=== PATIENT | male | born 1985 | race Hispanic/Latino ===

== ENCOUNTER 2018-02-20 15:50 | Emergency (ER) | payer OTHER ==
[~2018-02-20] VITALS: Ht 182.9 cm; Wt 92.0 kg
[2018-02-20 16:47] LABS: APPEARANCE CLOUDY ((CLEAR)); BILIRUBIN NEGATIVE; BLOOD MODERATE; COLOR YELLOW ((YELLOW)); GLUCOSE (STRIP) NEGATIVE; KETONES NEGATIVE; LEUKOCYTES LARGE; NITRITE POSITIVE; PROTEIN (STRIP) 100; SPECIFIC GRAVITY 1.017 (1.000-1.030); UROBILINOGEN 0.2 MG/DL (0.2-1.0)
[2018-02-20 17:10] LABS: HEMATOCRIT 43.1 % (38.0-50.0); HEMOGLOBIN 15.1 G/DL (12.5-16.6); MCH 30.8 PG (29.0-34.0); PLATELET COUNT 203 K/uL (156-360); RBC DIS.WIDTH-CV 12.7 % (11.8-14.6); RBC DIS.WIDTH-SD 41.1 % (39-53)
[2018-02-20 17:22] LABS: ALBUMIN 4.7 g/dL (3.2-4.8)
[2018-02-20 17:23] LABS: CHLORIDE 103 mEq/L (99-109); POTASSIUM 3.4 mEq/L (3.7-5.4); SODIUM 139 mEq/L (136-147)
[2018-02-20 17:25] LABS: GLUCOSE 83 mg/dL (70-99)
[2018-02-20 17:27] LABS: TOTAL BILIRUBIN 1.7 mg/dL (0.0-1.0)
[2018-02-20 17:28] LABS: ALKALINE PHOSPHATASE 81 IU/L (3-129)
[2018-02-20 17:29] LABS: CREATININE 1.1 mg/dL (0.6-1.3); GFR ESTIMATE (CALCULATED) > 59 mL/min/ (58.99-99999)
[2018-02-20 17:30] LABS: AST (GOT) 42 IU/L (2-34); UREA NITROGEN (BUN) 7 mg/dL (9-23)
[2018-02-20 17:31] LABS: UCUL ADDED? YES; WHITE BLOOD CELLS TNTC /HPF (0-5)
[2018-02-20 17:32] LABS: ALT (GPT) 79 IU/L (3-49)
[2018-02-20 17:55] LABS: SOURCE URINE
[2018-02-20 18:07] LABS: DIRECT BILIRUBIN 0.5 mg/dL (0.0-0.3)
[2018-02-20] MEDS ORDERED: NAPROSYN500 MG PO (19:01)
[2018-02-20] MEDS ORDERED: PYRIDIUM200 MG PO (19:01)
[2018-02-20] MEDS ORDERED: BACTRIM,SEPT1 TABLET PO (19:01)
[2018-02-20 19:33] VITALS: BP 124/85
[2018-02-21 15:18] LABS: CHLAMYDIA TRACHOMATIS NEGATIVE; NEISSERIA GONORRHOEAE NEGATIVE
== END 2018-02-20 19:35 | disposition home or self-care (01) ==
LOC: EME 15:50
PROVIDERS: Nurse Practitioner Family
DX: N39.0 Urinary tract infection, site not specified (principal); M54.5 Low back pain; G89.29 Other chronic pain; K76.0 Fatty (change of) liver, not elsewhere classified; B96.20 Unspecified Escherichia coli [E. coli] as the cause of diseases classified elsewhere; F17.200 Nicotine dependence, unspecified, uncomplicated
CPT/HCPCS: 74177; 80053; 81003; 82248; 83605; 85027; 87040; 87077; 87086; 87186; 87491; 87591; 99281; 99285; J0696; J1885; J7030